=== PATIENT | female | born 1985 | race Caucasian/White ===

== ENCOUNTER 2017-01-07 05:16 | Inpatient (IN) ==
[2017-01-07] MEDS ORDERED: 0.9 % Sodium Chloride 1,000 ML IVC ONE ×2 (05:32→12:37)
[2017-01-07] MEDS ORDERED: Clindamycin 600 MG/50 ML 600 MG/50 ML IV.SOLN IVPB ONE (05:33)
[2017-01-07] MEDS ORDERED: *HR* Morphine 2 MG/ML SYRINGE IVP ONE (05:35)
--- NOTE | 2017-01-07 06:19 | Emergency Department Note ---
Disposition Clinical Impression: Abscess of skin or subcutaneous tissue Qualifiers: Site of cutaneous abscess: face Qualified Code(s): L02.01 - Cutaneous abscess of face Disposition: Still a Patient Condition: Fair Referrals: NONE,PCP [Primary Care Provider] - Forms: ED Satisfaction Letter Time of Disposition: 06:57 General Adult HPI - General Chief complaint: ED Skin/Abscess/Foreign Body Stated complaint: facial swelling Time Seen by Provider: 01/07/17 05:25 Source: patient Limitations: no limitations Nursing Notes Reviewed: Yes Vital Signs Reviewed: Yes - History of Present Illness HPI Narrative: Patient is a 31-year-old female with a past medical history of IV drug use who presents to the emergency department with a two-day history of left facial swelling after what she says was a spider bite. Patient states that it is really painful. She denies any shortness of breath Pain Scale: 10 - Related Data Previous Rx's Medication Instructions Recorded HydrOXYzine Pamoate [Vistaril] 25 mg PO 3-4XD PRN #20 capsule 12/04/14 OxyCODONE/APAP 5/325 [Percocet 1 each PO Q6HR PRN #12 tablet 03/17/15 5/325 MG] metroNIDAZOLE [Flagyl] 500 mg PO TID #30 tablet 03/17/15 Dicyclomine [Bentyl] 20 mg PO QID #40 capsule 03/22/15 Diphenoxylate/Atropine [Lomotil] 1 each PO QID #40 tablet 03/22/15 Ondansetron ODT [Zofran ODT] 4 mg SL Q8HR PRN #15 tab.rapdis 03/22/15 OxyCODONE/APAP 5/325 [Percocet 1 each PO Q6HR PRN #10 tablet 03/22/15 5/325] PredniSONE 60 mg PO DAILY #6 tablet 03/22/15 Naproxen [Naprosyn] 500 mg PO BID PRN #30 tablet 03/26/15 Ondansetron [Zofran] 4 mg IM Q8H #10 vial 05/06/15 Phenazopyridine HCl [Pyridium] 200 mg PO TIDAC #6 tab 05/11/16 Sulfamethoxazole/Trimeth DS 1 each PO BID #14 tablet 05/11/16 [Bactrim DS] Ciprofloxacin [Cipro] 500 mg PO BID #10 tablet 07/20/16 Phenazopyridine [Pyridium] 200 mg PO TID #6 tablet 07/20/16 Ibuprofen [Motrin] 600 mg PO Q6HR PRN #30 tab 09/04/16 Ondansetron ODT [Zofran ODT] 4 mg SL Q6HR #20 tab.rapdis 09/04/16 Sulfamethoxazole/Trimeth DS 1 each PO BID #14 tablet 09/04/16 [Bactrim DS] Sulfamethoxazole/Trimeth DS 2 each PO BID #28 tablet 10/29/16 [Bactrim DS] Allergies Allergy/AdvReac Type Severity Reaction Status Date / Time Amoxicillin Allergy Anaphylaxis Verified 01/07/17 05:21 iodine Allergy Itching Verified 01/07/17 05:21 ketorolac [From Toradol] Allergy Seizure Verified 01/07/17 05:21 Penicillins Allergy Anaphylaxis Verified 01/07/17 05:21 tramadol Allergy Seizure Verified 01/07/17 05:21 sea food Allergy See Uncoded 07/20/16 07:52 Comments All systems ED: reviewed and negative except as stated. Constitutional: Denies: fever ENT ED: Reports: other (Facial pain). 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 There appears to be an area that has some drainage.) - Eye Eye exam: Absent: scleral icterus, conjunctival injection - ENT ENT exam: mucous membranes moist, other (Patent airway tongue is normal size.) - Neck Neck exam: Present: trachea midline. Absent: tenderness, meningismus - Chest Chest inspection: Present: normal inspection, symmetric chest wall rise - Respiratory Respiratory exam: Present: normal lung sounds bilaterally. Absent: respiratory distress, accessory muscle use - Cardiovascular Cardiovascular exam: Present: regular rate, normal rhythm, normal heart sounds - Abdominal Exam Abdominal exam: Present: soft, Non-Tender - Neurological Exam Neurological exam: Present: alert, oriented X3 - Psychiatric Psychiatric exam: Present: normal affect, normal mood - Skin Skin exam: Present: erythema, other (Left face, and drainage, swelling, tenderness to palpation stopping at the upper neck.) Course Course Narrative: This is a 31-year-old female with a past medical history of IV drug abuse. She presents to the emergency department with what appears to be an abscess and cellulitis of the left cheek. She denies any constitutional symptoms of fevers or chills at this time. I will obtain a CT scan of this patient's face. I will also start her on clindamycin. I suspect this to be a staph infection. I will obtain a CBC, BMP, and blood cultures. - Reevaluation(s) Reevaluation #1: SBAR was provided to Dr. Pereyra as this patient is awaiting CT scan and we are having shift change. Time: 06:56 Vital Signs Temperature 99.5 F 01/07/17 05:17 Pulse Rate 98 01/07/17 05:17 Respiratory Rate 20 01/07/17 05:17 Blood Pressure 110/67 01/07/17 05:17 O2 Sat by Pulse Oximetry 98 01/07/17 05:17 Temperature 99.5 F 01/07/17 05:17 Pulse Rate 98 01/07/17 05:17 Respiratory Rate 20 01/07/17 05:17 Blood Pressure 110/67 01/07/17 05:17 O2 Sat by Pulse Oximetry 98 01/07/17 05:17 Oxygen Delivery Oxygen Delivery Room Air Medical Decision Making - Lab Data Result diagrams: 01/07/17 06:40 Lab Results 01/07/17 01/07/17 01/07/17 Range/Units 05:30 05:55 06:40 WBC 15.7 H (4.3-11.1) K/mcL RBC 3.99 (3.82-4.97) M/mcL Hgb 11.6 (11.5-15.4) g/dL Hct 35.3 (35.3-44.9) % MCV 88.5 (83.0-100.0) fL MCH 29.1 (28.0-33.3) pg MCHC 32.9 (31.6-35.5) g/dL RDW 12.9 (11.5-14.5) % Plt Count 334 (140-400) K/mcL MPV 9.5 (9.4-12.4) fL Immature Gran % 0.5 (0-4) % Seg Neutrophils % 76.2 % Lymphocytes % 15.8 % Monocytes % 6.4 % Eosinophils % 0.8 % Basophils % 0.3 % Neutrophils # 12.0 H (1.6-8.9) K/mcL Lymphocytes # 2.5 (0.6-4.6) K/mcL Monocytes # 1.0 (0.0-1.3) K/mcL Eosinophils # 0.1 (0.0-0.6) K/mcL Basophils # 0.1 (0.0-0.2) K/mcL Immature Plt Fraction 2.7 (1.1-6.1) % Urine Test Negative (Negative) Specimen Rejected Hemolyzed Attestation Statement - Attestation Attestation: I, Leonel Garvin MD, personally evaluated this patient and discussed their management with the resident physician. I reviewed the resident's note and agree with the documented findings, medical decision making, and plan of care. 31-year-old female presents to the emergency department with a complaint of swelling of the left cheek area which started 2 days prior to arrival. There has been some low-grade fever. No difficulty swallowing or breathing. Patient states that a spider bit her on the left cheek area a few days ago. She does have a history of IV drug abuse. On examination patient is a well-developed thin female in no acute distress. She is alert and oriented 3. There is no cyanosis or diaphoresis. Patient has marked swelling of the left jaw and cheek area. The area is firm and tender to palpation. Mild erythema. There is a superficial crusted wound over the left jaw area with no drainage. Neck is supple with no lymphadenopathy. Breath sounds are clear and equal bilaterally. Heart regular. Labs and CT ordered. At shift change patient is signed out to the oncoming dayshift physician, Dr. Gee.
[2017-01-07 06:47] LABS: Basophils # 0.1 K/mcL (0.0-0.2); Basophils % 0.3 %; Eosinophils # 0.1 K/mcL (0.0-0.6); Eosinophils % 0.8 %; Hematocrit 35.3 % (35.3-44.9); Hemoglobin 11.6 g/dL (11.5-15.4); Immature Granulocytes % 0.5 % (0-4); Immature Platelets 2.7 % (1.1-6.1); Lymphocytes # 2.5 K/mcL (0.6-4.6); Lymphocytes % 15.8 %; Mean Corpuscular HGB Conc 32.9 g/dL (31.6-35.5); Mean Corpuscular Hemoglobin 29.1 pg (28.0-33.3); Mean Corpuscular Volume 88.5 fL (83.0-100.0); Mean Platelet Volume 9.5 fL (9.4-12.4); Monocytes % 6.4 %; Platelet Count 334 K/mcL (140-400); Red Blood Count 3.99 M/mcL (3.82-4.97); Red Cell Distribution Width 12.9 % (11.5-14.5); Segmented Neutrophils % 76.2 %
[2017-01-07 07:00] LABS: BUN/Creatinine Ratio 11 (6-26); Blood Urea Nitrogen 7 mg/dL (7-20); Calcium 9.4 mg/dL (8.6-10.8); Carbon Dioxide 27 mEq/L (19-29); Chloride 96 mEq/L (98-109); Glucose 118 mg/dL (70-99); Osmolality,Calculated 273 (280-300); Potassium 3.8 mEq/L (3.5-4.5); Sodium 132 mEq/L (136-145); eGFR For African Americans > 60 (> 60); eGFR For Non-African Americans > 60 (> 60)
--- NOTE | 2017-01-07 07:44 | Emergency Department Note ---
START Narrative - START START: I did see the patient and spoke with her and examined her. A large amount of facial swelling. Labs and reviewed showing a leukocytosis and some minimal hyponatremia. The patient does have a CT pending. Antibiotics have been started. I did add on a lactate. Blood cultures have been ordered. The patient will be admitted to the hospital. There is no crepitus. I did not palpate inside the mouth and looked under the tongue and there is no evidence of Brian angina. There is no drooling or stridor or evidence of emergent airway impingement. [id number]
[2017-01-07] MEDS ORDERED: Vancomycin 750 MG in D5% in Water 250 ML IVPB ONE (09:10)
--- NOTE | 2017-01-07 09:16 | Emergency Department Note ---
Disposition Clinical Impression: Hyponatremia, Intravenous drug abuse Abscess of skin or subcutaneous tissue Qualifiers: Site of cutaneous abscess: face Qualified Code(s): L02.01 - Cutaneous abscess of face Disposition: Admitted As Inpatient Condition: Fair Referrals: NONE,PCP [Primary Care Provider] - Forms: ED Satisfaction Letter Time of Disposition: 09:16 General Adult HPI - General Chief complaint: ED Skin/Abscess/Foreign Body Stated complaint: facial swelling Time Seen by Provider: 01/07/17 05:25 Source: patient Limitations: no limitations Nursing Notes Reviewed: Yes Vital Signs Reviewed: Yes - History of Present Illness Pain Scale: 10 - Related Data Home Medications Medication Instructions Recorded Confirmed No Known Home Drugs 01/07/17 01/07/17 Allergies Allergy/AdvReac Type Severity Reaction Status Date / Time Amoxicillin Allergy Anaphylaxis Verified 01/07/17 05:21 iodine Allergy Itching Verified 01/07/17 05:21 ketorolac [From Toradol] Allergy Seizure Verified 01/07/17 05:21 Penicillins Allergy Anaphylaxis Verified 01/07/17 05:21 tramadol Allergy Seizure Verified 01/07/17 05:21 sea food Allergy See Uncoded 07/20/16 07:52 Comments Constitutional: Denies: fever ENT ED: Reports: other (Facial pain). 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 - Social History Smoking Status: Current every day smoker Smokeless Tobacco Status: No Alcohol use: Reports: none Drug use: Reports: cocaine, opiates, marijuana, IV Drug Use, other Physical Exam - General Limitations: no limitations General appearance: alert, in no apparent distress Course Vital Signs Temperature 99.5 F 01/07/17 05:17 Pulse Rate 98 01/07/17 05:17 Respiratory Rate 20 01/07/17 05:17 Blood Pressure 110/67 01/07/17 05:17 O2 Sat by Pulse Oximetry 98 01/07/17 05:17 Temperature 99.5 F 01/07/17 05:17 Pulse Rate 98 01/07/17 05:17 Respiratory Rate 20 01/07/17 05:17 Blood Pressure 110/67 01/07/17 05:17 O2 Sat by Pulse Oximetry 98 01/07/17 05:17 Oxygen Delivery Oxygen Delivery Room Air Medical Decision Making - MDM Narrative Medical decision making narrative: I did see the patient and spoke with her and examined her. A large amount of facial swelling. Labs and reviewed showing a leukocytosis and some minimal hyponatremia. The patient does have a CT pending. Antibiotics have been started. I did add on a lactate. Blood cultures have been ordered. The patient will be admitted to the hospital. There is no crepitus. I did not palpate inside the mouth and looked under the tongue and there is no evidence of Brian angina. There is no drooling or stridor or evidence of emergent airway impingement. 0743 I did discuss with the hospitalist who accepts the patient for admission. I did add on vancomycin. The patient is currently sleeping.[id number] I did review the patient's EKG which shows normal sinus rhythm with a rate of 90 without acute ischemic changes. The intervals are normal. No prolongation of the QT segment. 1103 - Medical Records Medical records reviewed: Yes I reviewed the patient's medical records. - Lab Data Lab results reviewed: Yes I reviewed the patient's lab results. Result diagrams: 01/07/17 06:40 01/07/17 06:40 Lab Results 01/07/17 01/07/17 01/07/17 Range/Units 05:30 05:55 06:40 WBC 15.7 H (4.3-11.1) K/mcL RBC 3.99 (3.82-4.97) M/mcL Hgb 11.6 (11.5-15.4) g/dL Hct 35.3 (35.3-44.9) % MCV 88.5 (83.0-100.0) fL MCH 29.1 (28.0-33.3) pg MCHC 32.9 (31.6-35.5) g/dL RDW 12.9 (11.5-14.5) % Plt Count 334 (140-400) K/mcL MPV 9.5 (9.4-12.4) fL Immature Gran % 0.5 (0-4) % Seg Neutrophils % 76.2 % Lymphocytes % 15.8 % Monocytes % 6.4 % Eosinophils % 0.8 % Basophils % 0.3 % Neutrophils # 12.0 H (1.6-8.9) K/mcL Lymphocytes # 2.5 (0.6-4.6) K/mcL Monocytes # 1.0 (0.0-1.3) K/mcL Eosinophils # 0.1 (0.0-0.6) K/mcL Basophils # 0.1 (0.0-0.2) K/mcL Immature Plt Fraction 2.7 (1.1-6.1) % Sodium (136-145) mEq/L Potassium (3.5-4.5) mEq/L Chloride (98-109) mEq/L Carbon Dioxide (19-29) mEq/L BUN (7-20) mg/dL Creatinine (0.57-1.11) mg/dL Est GFR ( Amer) (> 60) Est GFR (Non-Af Amer) (> 60) BUN/Creatinine Ratio (6-26) Glucose (70-99) mg/dL Calculated Osmolality (280-300) Lactic Acid (0.5-2.2) mmol/L Calcium (8.6-10.8) mg/dL Urine Test Negative (Negative) Specimen Rejected Hemolyzed 01/07/17 01/07/17 Range/Units 06:40 08:15 WBC (4.3-11.1) K/mcL RBC (3.82-4.97) M/mcL Hgb (11.5-15.4) g/dL Hct (35.3-44.9) % MCV (83.0-100.0) fL MCH (28.0-33.3) pg MCHC (31.6-35.5) g/dL RDW (11.5-14.5) % Plt Count (140-400) K/mcL MPV (9.4-12.4) fL Immature Gran % (0-4) % Seg Neutrophils % % Lymphocytes % % Monocytes % % Eosinophils % % Basophils % % Neutrophils # (1.6-8.9) K/mcL Lymphocytes # (0.6-4.6) K/mcL Monocytes # (0.0-1.3) K/mcL Eosinophils # (0.0-0.6) K/mcL Basophils # (0.0-0.2) K/mcL Immature Plt Fraction (1.1-6.1) % Sodium 132 L (136-145) mEq/L Potassium 3.8 (3.5-4.5) mEq/L Chloride 96 L (98-109) mEq/L Carbon Dioxide 27 (19-29) mEq/L BUN 7 (7-20) mg/dL Creatinine 0.64 (0.57-1.11) mg/dL Est GFR ( Amer) > 60 (> 60) Est GFR (Non-Af Amer) > 60 (> 60) BUN/Creatinine Ratio 11 (6-26) Glucose 118 H (70-99) mg/dL Calculated Osmolality 273 L (280-300) Lactic Acid 0.6 (0.5-2.2) mmol/L Calcium 9.4 (8.6-10.8) mg/dL Urine Test (Negative) Specimen Rejected - Radiology Data Radiology results reviewed: Yes I reviewed the patient's radiology results. Critical Care Time Critical Care Time: No
[2017-01-07] MEDS: *HR* Morphine 2 MG/ML SYRINGE IVP ONE ×2 (11:00→12:03)
[2017-01-07] MEDS ORDERED: *HR* Morphine 10 MG/ML VIAL IVP ONE (11:00)
[2017-01-07] MEDS ORDERED: *HR* Morphine 2 MG/ML SYRINGE SQ ONE (11:17)
[2017-01-07 11:34] LABS: Amphetamine Screen,Urine Positive ng/mL (Cutoff=1000); Barbiturate Screen,Urine Negative ng/mL (Cutoff=200); Benzodiazepines Screen,Urine Negative ng/mL (Cutoff=200); Cannabinoid Screen,Urine Negative ng/mL (Cutoff = 50); Cocaine Screen,Urine Positive ng/mL (Cutoff= 300); Opiate Screen,Urine Positive ng/mL (Cutoff=300); Phencyclidine Screen,Urine Negative ng/mL (Cutoff=25)
[2017-01-07] MEDS ORDERED: *HR* Morphine 10 MG/ML VIAL IM ONE (11:45)
[2017-01-07] MEDS ORDERED: Ondansetron 4 MG/2 ML VIAL IVP PRN (12:38)
[2017-01-07] MEDS ORDERED: Naloxone 0.4 MG/ML INJ IVP PRN (12:38)
[2017-01-07] MEDS ORDERED: Acetaminophen 325 MG TABLET PO PRN (12:38)
[2017-01-07] MEDS ORDERED: Vancomycin 750 MG in D5% in Water 250 ML IVPB SCH (13:00)
[2017-01-07] MEDS ORDERED: D5% in Water 1,000 ML IVC PRN (13:11)
[2017-01-07] MEDS ORDERED: Dextrose Gel 15 GM PO PRN ×2 (13:11)
[2017-01-07] MEDS ORDERED: *HR* Dextrose 50 % in Water (Syg) 50 ML SYRINGE IVP PRN (13:11)
[2017-01-07] MEDS: Pantoprazole 40 MG VIAL IVP SCH (14:08)
[2017-01-07] MEDS: 0.9 % Sodium Chloride 1,000 ML IVC SCH ×2 (14:08→22:14)
[2017-01-07 14:13] LABS: eGFR For African Americans > 60 (> 60); eGFR For Non-African Americans > 60 (> 60)
--- NOTE | 2017-01-07 15:07 | Internal Med History&Physical ---
Date of Encounter: 01/07/17 Time of Encounter: 10:30 Assessment and Plan (1) Sepsis affecting skin Current visit: Yes Status: Acute Patient presents with criteria for sepsis on admission. Patient has WBC of 15.7 , heart rate of 98 bpm, and respiratory rate of 20-21. Patient is afebrile at this time with temperature of 99.5F. Patient received IV 0.9 NS bolus of 1,000 mL in ED at 3,750 mL/HR which was followed by second bolus. Following second bolus, patient to be 125 mL/HR. IV clindamycin and vancomycin administered in the ED. IV vancomycin with pharmacy dosing and IV clindamycin 900 mg Q8 to be continued. Bilirubin and creatinine ordered stat. Timed lactic acids ordered. Blood cultures x2 and wound culture ordered stat. Wound care consult and daily wound care ordered. ENT consult ordered. Follow-up labs ordered. Patient to be monitored closely for signs of increasing infection, cardiac and/or respiratory distress. Patient originally on 3A and moved to for monitoring. (2) Positive urine drug screen Current visit: Yes Status: Acute Patient presents with known history of drug abuse and IV drug use. Patient reports she used cocaine yesterday prior to coming to the ED for current cellulitis. Patient's urine tox screen positive for opiates, amphetamines, and cocaine. SW consult ordered to assess for post-discharge rehabilitation needs. (3) Hyperglycemia Current visit: Yes Status: Acute Patient presents with acute hyperglycemia and glucose level of 118 on admission. Blood glucose monitoring before meals and at bedtime. A1c ordered. Will administer low-dose correction insulin sliding scale hypoglycemic protocol. (4) Hyponatremia Current visit: Yes Status: Acute Patient presents with acute hyponatremia and sodium level of 132. Patient to receive 1 bolus of 1,000 mL IV fluids in the ED 0.9 NS, followed by second bolus of 1,000 mL, then 125 mL/HR 0.9 NS. Will monitor patient sodium level in follow-up labs. (5) DVT prophylaxis Current visit: Yes Status: Acute Patient to be placed on DVT prophylaxis due to current admission protocol and bed rest status. Bilateral SCDs placed on patient's LEs due to current symptoms regarding cellulitis and possible need for surgical intervention. Internal Medicine - H&P: HPI Chief complaint: Facial abscess of the left cheek Admitted From: Emergency Dept Plans for Post Hospital Care: Home History of present illness: Ms. Woodall is a 31 year old female with medical history of kidney stones presents from the ED with chief complaint of severe facial swelling to the left cheek due to what she reports as a spider bite from 2 days ago. Patient is a known drug addict with IV drug use. Patient's urine tox screen in the ED positive for opiates, amphetamines, cocaine. Patient reports she used cocaine yesterday. Patient reports extreme pain to the left cheek but denies any difficulty swallowing or shortness of breath. Patient also denies recent illness, nausea, vomiting, chills, chest pain, abdominal pain, lightheadedness, dizziness, unusual bleeding, presyncope, or syncope. CT of the face today with contrast shows marked soft tissue swelling of the left face and no focal fluid collection. On admission, patient's vital signs include temperature of 99.5F, heart rate of 98 bpm, respiratory rate of 20, BP 110/67, and SPO2 98% on room air. Patient's abnormal labs include WBC of 15.7, sodium of 132, chloride of 96 , and glucose of 118. Patient is a poor historian and appears altered on examination and provides very little information. Patiently currently meets sepsis criteria based on her 8, respiratory rate, and WBC. Patient is currently hemodynamically stable and in acute distress due to pain. Information taken from patient when able as well as previous medical records and imaging. Ms. Woodall is at high risk for further morbidity to current sepsis criteria, current symptoms, recent drug abuse, and risk factors and will be placed as inpatient status. Time spent with patient >40 minutes. Past Med Surg Social Fam HX - Past Medical History Source: patient, old records reviewed Medical history: kidney stones Psychiatric history: anxiety, depression, prior suicide attempt - Past Surgical History Surgical History: cholecystectomy - Social History Smoking Status: Current every day smoker Packs per day: 1 PPD Smokeless Tobacco Status: No Alcohol use: none Drug use: cocaine (Reports using cocaine yesterday prior to coming to ED), opiates, marijuana, IV Drug Use, other Current living situation: Home Activity Level: Independent ambulation Recent Out of Country Travel Within the Last 8 Weeks: No Exposure or Possible Exposure to Illness During Travel: No - Family History Father Race: Family Member Ethnicity: Non- Living Status: Still Living Hx Family Medical Disorders: No Mother Race: Family Member Ethnicity: Non- Living Status: Age at : 44 Cause of : CA Hx Family Cardiac Disorders: Yes (CA, HD) Hx Family Endocrine Disorder: Yes (DM) Brother Race: Family Member Ethnicity: Non- Living Status: Still Living Hx Family Cardiac Disorders: Yes (HD) Internal Medicine - H&P: Meds No Known Home Drugs 01/07/17 [History] 3 Allergy/AdvReac Type Severity Reaction Status Date / Time Amoxicillin Allergy Anaphylaxis Verified 01/07/17 05:21 iodine Allergy Itching Verified 01/07/17 05:21 ketorolac [From Toradol] Allergy Seizure Verified 01/07/17 05:21 Penicillins Allergy Anaphylaxis Verified 01/07/17 05:21 tramadol Allergy Seizure Verified 01/07/17 05:21 sea food Allergy See Uncoded 07/20/16 07:52 Comments All Systems PM: A 10-system review of systems was performed and is negative for pertinent findings except as documented above in the HPI. - EENT Eyes: no change in vision, no discharge, no pain, no photophobia Ears: no ear discharge, no ear pain, no tinnitus Nose, mouth and throat: no dysphagia, no nasal discharge, no neck pain, no sore throat - Cardiovascular Cardiovascular ROS IM: no chest pain, no diaphoresis, no dyspnea, no lightheadedness, no palpitations, no syncope - Respiratory Respiratory: no cough, no dyspnea, no wheezing, no excessive phlegm production - Gastrointestinal Gastrointestinal: no abdominal pain, no diarrhea, no hematemesis, no hematochezia, no melena, no nausea, no vomiting - Genitourinary Genitourinary: no change in urinary stream, no dysuria, no flank pain, no hematuria Menstruation: as per HPI - Musculoskeletal Musculoskeletal ROS IM: no numbness, no tingling - Integumentary Integumentary IM: as per HPI, erythema, sores (Left cheek d/t cellulitis and spider bite) - Neurological Neurological ROS: as per HPI - Psychiatric Psychiatric: as per HPI, anxiety (D/t pain) - Endocrine Endocrine IM: as per HPI - Hematologic/Lymphatic Hematologic/Lymphatic: no easy bruising - Allergic/Immunologic Allergic/Immunologic: as per HPI - Constitutional Vitals: Temp Pulse Resp BP Pulse Ox 98 F 92 16 118/74 98 01/07/17 12:43 01/07/17 14:40 01/07/17 14:40 01/07/17 14:40 01/07/17 14:40 General appearance: Present: A&O X 2, severe distress, answers questions appropriately (Requires several attempts) - Head Additional comments: Left cheek is edematous and erythematous with swelling the size of a grapefruit. There is a center core area that is weeping with serosanguineous fluid. - Eye Additional comments: Right eye is able to open. Left eye is swollen shut. - ENT ENT exam: Present: mucous membranes dry - Neck Neck exam general surgery: Present: tenderness (Left side of neck is edematous.) - Respiratory Respiratory exam: Present: CTAB. Absent: accessory muscle use, rales, rhonchi, wheezes - Cardiovascular Cardiovascular exam: Present: RRR, +S1, +S2. Absent: diastolic murmur, gallop, rubs, systolic murmur - GI/Abdominal GI/Abdominal exam: Present: normal bowel sounds, soft, no peritoneal signs. Absent: distended, tenderness - Rectal Rectal exam: Present: deferred - Additional comments: exam deferred. - Extremities Exam Extremities exam: Present: warm, radial pulses palpable and symmetrical. Absent : calf tenderness, cyanotic, pedal edema - Back Exam Back exam: Present: normal inspection - Neurological Exam Neurological exam: Present: altered - Psychiatric Psychiatric exam: Present: anxious - Skin Skin exam: Present: dry, intact Internal Med - H&P Results - Labs CBC & Chem 7: 01/07/17 06:40 01/07/17 13:50 Labs: BMP 01/07/17 13:50 Creatinine 0.60 Cardiac Enzymes 01/07/17 Range/Units 13:50 Troponin I 0.00 (0-0.03) ng/mL Liver Function 01/07/17 Range/Units 13:50 Total Bilirubin 0.6 (0.2-1.2) mg/dL - EKG Data EKG shows normal: sinus rhythm - EKG Data Prior EKG available for review: yes EKG comments: 01/07/17 15:32 EKG dated 09/03/16 shows sinus tachycardia and right atrial enlargement, moderate ST depression. EKG dated 01/07/17 shows sinus rhythm with sinus arrhythmia and incomplete right bundle branch block. - Diagnostic Studies Other Images Additional comments: Impressions Face CT 01/07/17 05:29 IMPRESSION: Marked soft tissue swelling of the left face. No focal fluid collection. D/ / 01/07/2017 08:40:28 Chaz Avila MD / [employer]old Interpreting Provider: Chaz Avila MD
[2017-01-07 15:20] LABS: Hepatitis A Antibody IgM Nonreactive (Nonreactive); Hepatitis B Surface Antigen Nonreactive (Nonreactive)
[2017-01-07 15:53] LABS: Hepatitis B Core IgM Grayzone (Nonreactive); Hepatitis C Virus Antibody Reactive (Nonreactive)
[2017-01-07] MEDS ORDERED: Clindamycin 600 MG/50 ML 600 MG/50 ML IV.SOLN IVPB SCH (16:00)
[2017-01-07] MEDS: Clindamycin 900 MG/50 ML 900 MG/50 ML IV.SOLN IVPB SCH (17:01)
[2017-01-07] MEDS: *HR* HYDROmorphone (PF) 1 MG/ML SYRINGE IVP PRN ×2 (19:35→22:19)
--- NOTE | 2017-01-07 19:38 | ENT - Consult Note ---
Date of Encounter: 01/07/17 Time of Encounter: 19:20 Assessment and Plan (1) Facial abscess Current Visit: Yes Status: Acute White female with findings consistent with facial abscess patient on appropriate antibiotics including vancomycin and clindamycin recommending heat and incision and drainage in the morning no airway difficulty currently and no special that this will develop overnight History of Present Illness History of present illness: White female admitted today with significant facial cellulitis patient gives history of spider bite but she also has history of drug use a CT scan done earlier today did not reveal any obvious abscess that there is a suggestion of loculation patient has no problems with swelling going down onto the neck it is difficult to visualize do an exam of the oral cavity but she is having no problems with breathing and is handling her secretions well Past Med Surg Social Fam HX - Past Medical History Medical history: kidney stones Psychiatric history: anxiety, depression, prior suicide attempt - Past Surgical History Surgical History: cholecystectomy - Social History Smoking Status: Current every day smoker Packs per day: 1 PPD Smokeless Tobacco Status: No Alcohol use: none Drug use: cocaine (Reports using cocaine yesterday prior to coming to ED), opiates, marijuana, IV Drug Use, other - Family History Father Race: Family Member Ethnicity: Non- Living Status: Still Living Hx Family Medical Disorders: No Mother Race: Family Member Ethnicity: Non- Living Status: Age at : 44 Cause of : CO Hx Family Cardiac Disorders: Yes (CO, HD) Hx Family Endocrine Disorder: Yes (DM) Brother Race: Family Member Ethnicity: Non- Living Status: Still Living Hx Family Cardiac Disorders: Yes (HD) Medications and Allergies No Known Home Drugs 01/07/17 [History] 3 Allergy/AdvReac Type Severity Reaction Status Date / Time Amoxicillin Allergy Anaphylaxis Verified 01/07/17 05:21 iodine Allergy Itching Verified 01/07/17 05:21 ketorolac [From Toradol] Allergy Seizure Verified 01/07/17 05:21 Penicillins Allergy Anaphylaxis Verified 01/07/17 05:21 tramadol Allergy Seizure Verified 01/07/17 05:21 sea food Allergy See Uncoded 07/20/16 07:52 Comments ENT Exam Initial Vital Signs Temp Pulse Resp BP Pulse Ox 99.5 F 98 20 110/67 98 01/07/17 05:17 01/07/17 05:17 01/07/17 05:17 01/07/17 05:01/07/17 05:17 - General physical appearance well developed, well nourished, moderate distress, severe pain - Eyes PERRL (Significant swelling noted of the left periorbita consistent with fascial abscess cellulitis) - ENT normal pinna, normal nares, normal mucosa, no hearing loss, no congestion, Other (Gross swelling of the left cheek with a small area of skin breakdown able to exude pus from this. The face is tense on the left side) - Neck no masses, trachea midline, no lymphadectomy - Respiratory normal respiratory effort, clear to auscultation Exam Initial Vital Signs Temp Pulse Resp BP Pulse Ox 99.5 F 98 20 110/67 98 01/07/17 05:01/07/17 05:01/07/17 05:17 01/07/17 05:01/07/17 05:17 Results - Labs 01/07/17 06:40 01/07/17 13:50 Abnormal lab results WBC 15.7 K/mcL (4.3-11.1) H 01/07/17 06:40 Neutrophils # 12.0 K/mcL (1.6-8.9) H 01/07/17 06:40 Sodium 132 mEq/L (136-145) L 01/07/17 06:40 Chloride 96 mEq/L (98-109) L 01/07/17 06:40 Glucose 118 mg/dL (70-99) H 01/07/17 06:40 POC Glucose 101 (58-89) H 01/07/17 18:01 Calculated Osmolality 273 (280-300) L 01/07/17 06:40 Urine Opiates Screen Positive ng/mL (Crubsd=395) H 01/07/17 05:30 Ur Amphetamines Screen Positive ng/mL (Vfhafm=9174) H 01/07/17 05:30 Urine Cocaine Screen Positive ng/mL (Cutoff= 300) H 01/07/17 05:30 Hep B Core IgM Ab [place] (Nonreactive) H 01/07/17 13:50 Hepatitis C Ab Screen Reactive (Nonreactive) H 01/07/17 13:50 Diabetes panel 01/07/17 Range/Units 13:50 Creatinine 0.60 (0.57-1.11) mg/dL Pituitary panel 01/07/17 Range/Units 13:50 Creatinine 0.60 (0.57-1.11) mg/dL Adrenal panel 01/07/17 01/07/17 Range/Units 13:50 13:50 Creatinine 0.60 (0.57-1.11) mg/dL Total Bilirubin 0.6 (0.2-1.2) mg/dL All other labs normal. Consult Discharge Plan - Plan Referrals: [facility] [Other] (They are only open on Tuesday' from 5p 7-p)
[2017-01-07] MEDS: Insulin LISPRO 300 UNITS/3 ML VIAL SQ SCH ×2 (20:39→21:23)
[2017-01-07] MEDS: Vancomycin 750 MG in D5% in Water 250 ML IVPB SCH (22:10)
[2017-01-08] MEDS: Clindamycin 900 MG/50 ML 900 MG/50 ML IV.SOLN IVPB SCH ×3 (00:35→17:12)
[2017-01-08] MEDS: *HR* HYDROmorphone (PF) 1 MG/ML SYRINGE IVP PRN ×6 (01:37→20:10)
[2017-01-08 07:02] LABS: Basophils % 0.3 %; Eosinophils # 0.2 K/mcL (0.0-0.6); Eosinophils % 1.3 %; Hematocrit 36.3 % (35.3-44.9); Hemoglobin 12.2 g/dL (11.5-15.4); Immature Granulocytes % 0.4 % (0-4); Immature Platelets 2.3 % (1.1-6.1); Lymphocytes % 14.6 %; Mean Corpuscular HGB Conc 33.6 g/dL (31.6-35.5); Mean Corpuscular Hemoglobin 29.4 pg (28.0-33.3); Mean Corpuscular Volume 87.5 fL (83.0-100.0); Mean Platelet Volume 9.3 fL (9.4-12.4); Monocytes # 0.6 K/mcL (0.0-1.3); Monocytes % 4.4 %; Neutrophils # 10.7 K/mcL (1.6-8.9); Platelet Count 360 K/mcL (140-400); Red Blood Count 4.15 M/mcL (3.82-4.97); Red Cell Distribution Width 12.3 % (11.5-14.5)
[2017-01-08 07:07] LABS: INR 1.2; Prothrombin Time 12.6 Seconds (9.4-12.1)
[2017-01-08 07:09] LABS: Activated Partial Thrombo Time 29.8 Seconds (26.0-36.0)
[2017-01-08 07:30] LABS: Alanine Aminotransferase 31 Units/L (0-55); Alkaline Phosphatase 92 Units/L (38-126); Aspartate Amino Transferase 24 Units/L (5-34); BUN/Creatinine Ratio 7 (6-26); Bilirubin,Total 0.5 mg/dL (0.2-1.2); Calcium 9.1 mg/dL (8.6-10.8); Carbon Dioxide 26 mEq/L (19-29); Chloride 99 mEq/L (98-109); Glucose 85 mg/dL (70-99); Magnesium 1.3 mg/dL (1.6-2.6); Osmolality,Calculated 272 (280-300); Potassium 3.9 mEq/L (3.5-4.5); Sodium 133 mEq/L (136-145); eGFR For African Americans > 60 (> 60); eGFR For Non-African Americans > 60 (> 60)
[2017-01-08 07:31] LABS: Albumin 3.2 g/dL (3.5-5.0); Albumin/Globulin Ratio 0.8 (1.1-2.2); Chol/HDL Ratio 2.6 (0-4.9); Cholesterol 154 mg/dL (< 200); Globulin 3.8 g/dL (2.4-3.5); HDL Cholesterol 59 mg/dL (40-59); LDL Cholesterol,Calculated 79 mg/dL (0-99); Triglycerides 79 mg/dL (< 150)
[2017-01-08 07:32] LABS: Blood Urea Nitrogen 4 mg/dL (7-20)
[2017-01-08] MEDS: 0.9 % Sodium Chloride 1,000 ML IVC SCH ×2 (08:13→14:32)
[2017-01-08] MEDS: Insulin LISPRO 300 UNITS/3 ML VIAL SQ SCH ×4 (08:31→20:38)
--- NOTE | 2017-01-08 09:58 | Electrocardiograph Report ---
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
[2017-01-08 10:12] LABS: Hemoglobin A1C 5.2 %
[2017-01-08] MEDS: Pantoprazole 40 MG VIAL IVP SCH (10:31)
[2017-01-08] MEDS: Vancomycin 750 MG in D5% in Water 250 ML IVPB SCH ×2 (10:31→20:10)
[2017-01-08] MEDS ORDERED: Ipratropium/Albuterol Neb 3 ML IH ONE (11:47)
[2017-01-08] MEDS ORDERED: Ipratropium/Albuterol Neb 3 ML ONE (11:48)
--- NOTE | 2017-01-08 12:06 | Anesthesia Evaluation PreOp ---
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 Denies IVDA despite puncture/ track mcgowan), other Medications and Allergies No Known Home Drugs 01/07/17 [History] 3 Allergy/AdvReac Type Severity Reaction Status Date / Time Amoxicillin Allergy Anaphylaxis Verified 01/07/17 05:21 iodine Allergy Itching Verified 01/07/17 05:21 ketorolac [From Toradol] Allergy Seizure Verified 01/07/17 05:21 Penicillins Allergy Anaphylaxis Verified 01/07/17 05:21 tramadol Allergy Seizure Verified 01/07/17 05:21 sea food Allergy See Uncoded 07/20/16 07:52 Comments - Meds/Allergy Pre-op Review Medications Reviewed: Yes Allergies Reviewed: Yes Beta Blockers on Current Med List: No Anesthesia Results - Labs 01/08/17 06:50 01/08/17 06:50 - Imaging EKG: image reviewed Anesthesia Exam Vital Signs Temp Pulse Resp BP Pulse Ox 01/08/17 11:51 98.2 F 93 16 112/77 100 01/08/17 11:20 90 98 01/08/17 07:46 97.7 F 95 16 113/55 97 01/08/17 03:58 97.8 F 92 16 108/59 97 01/07/17 23:20 98.8 F 94 16 114/80 99 01/07/17 19:51 99.4 F 89 107/71 97 01/07/17 17:00 93 99 01/07/17 16:21 86 98 01/07/17 15:27 98.7 F 89 20 112/74 98 01/07/17 14:40 92 16 118/74 98 01/07/17 12:43 98 F 72 16 100/62 96 Intake and Output 0901/08/17 01/08/17 23:59 07:59 15:59 Intake Total 1300 / 1300 850 / 850 0 / 0 Output Total 1000 / 1000 2400 / 2400 350 / 350 Balance 300 / 300 -1550 / -1550 -350 / -350 Intake: IV Fluids 1300 / 1300 850 / 850 0.9 % Sodium Chloride 1, 1000 / 1000 800 / 800 000 ML @ 125 mls/hr IVC . Q8H [facility] Rx#:[id number] Cleocin Premix 900 MG/50 50 / 50 50 / 50 ML 900 mg In 50 ml @ 50 mls/hr IVPB Q8HR [facility] Rx#: [id number] Vancocin 750 MG In 250 / 250 Dextrose 5% 250 ML @ 250 mls/hr IVPB Q12H [facility] Rx#: [id number] Oral 0 / 0 0 / 0 0 / 0 Output: Urine 1000 / 1000 2400 / 2400 350 / 350 Other: Weight 53.6 kg Blood Glucose* 101 77 Weight: 117# 54kG [BMI = 23] NPO (# of Hours): MNoc - HEENT Pupil (Motor): Pupils equal, EOMI Mallampati: IV (Pt unable to fully open mouth) Oral Opening: Less than or equal to 3 - REMOTE SENSING TECHNOLOGIST LOC: Oriented REMOTE SENSING TECHNOLOGIST Motor: Normal RUE, Normal LUE, Normal RLE, Normal LLE, Deficit Face (FAcial Swelling eye to chin) REMOTE SENSING TECHNOLOGIST Sensory: Normal: RUE, LUE, RLE, LLE, Deficit: Face - Cardiac Rhythm: Regular Murmur: None - Pulmonary Breath Sounds: bilateral Clear Respiratory Effort: Symmetrical Anesthesia Assess/Plan ASA Score: 3 (Hep C+, MRSA, Polysubstance abuse) Modified Dorset Scale for Level of Consciousness: Cooperative, oriented, and tranquil Anesthetic Plan: General Monitoring Plan: Standard Monitors Recovery Plan: PACU Anes Supervising Prov Stmt: Pt seen/evaluated, R&B Discussed, questions answered and consent obtained. Dorothy Hayes MD
--- NOTE | 2017-01-08 12:22 | Internal Med Progress Note ---
Date of Encounter: 01/08/17 Time of Encounter: 09:00 - Assessment and plan (1) Sepsis affecting skin Current Visit: Yes Status: Acute Assessment and plan: Patient to meet criteria for sepsis. We will continue antibiotics, IV fluid. Negative lactate. Will follow blood culture. - ENT doctor on case, plan for I/D. - Closely monitor patient for possible airway obstruction. Place patient on continuous cardiac and pulse oximeter monitoring. Keep nothing by mouth at this point. Patient is at high risk because she is on vancomycin, need close monitoring (2) DVT prophylaxis Current Visit: Yes Status: Acute Assessment and plan: SCDs (3) Positive urine drug screen Current Visit: Yes Status: Acute Assessment and plan: Social work consult for possible detox referral. - Time Spent With Patient Greater than 35 minutes - Subjective Interval history: Patient is a 31-year-old female admitted for left cheek cellulitis. Past medical history is significant for history of IV drug use. Patient was seen and examined. Still has left cheek swelling and redness. Reportedly improved after antibiotic use. No fever. Vitals generally stable. ENT on case and the plan for I/D. continue vancomycin and clindamycin. - Constitutional Vitals: Temp Pulse Resp BP Pulse Ox 98.2 F 93 16 112/77 100 01/08/17 11:51 01/08/17 11:51 01/08/17 11:51 01/08/17 11:51 01/08/17 11:51 General appearance: Present: mild distress, A&O X 3, answers questions appropriately (Requires several attempts) - Head Head exam: Present: atraumatic, normocephalic - Eye Eye exam: Present: PERRL, conjuntiva pink, sclera anicteric Pupils: Present: PERRL - ENT Additional comments: Left cheek swelling, redness related to left eye and lips. - Neck Neck exam general surgery: Present: supple, trachea midline. Absent: lymphadenopathy - Respiratory Respiratory exam: Present: CTAB. Absent: accessory muscle use, rales, rhonchi, wheezes - Cardiovascular Cardiovascular exam: Present: RRR, +S1, +S2. Absent: diastolic murmur, gallop, rubs, systolic murmur - GI/Abdominal GI/Abdominal exam: Present: normal bowel sounds, soft, no peritoneal signs. Absent: distended, tenderness - Extremities Exam Extremities exam: Present: warm, radial pulses palpable and symmetrical. Absent : calf tenderness, cyanotic, pedal edema - Neurological Exam Neurological exam: Present: CN II-XII intact, oriented X3, no focal deficits. Absent: pronater drift, facial droop, speech deficit - Skin Skin exam: Present: dry, intact Internal Medicine: Result - Labs CBC & Chem 7: 01/08/17 06:50 01/08/17 06:50 Labs: Short CBC 01/08/17 Range/Units 06:50 WBC 13.6 H (4.3-11.1) K/mcL Hgb 12.2 (11.5-15.4) g/dL Hct 36.3 (35.3-44.9) % Plt Count 360 (140-400) K/mcL Neutrophils # 10.7 H (1.6-8.9) K/mcL BMP 01/07/17 01/08/17 13:50 06:50 Sodium 133 L Potassium 3.9 Chloride 99 Carbon Dioxide 26 BUN 4 L Creatinine 0.60 0.60 Glucose 85 Calcium 9.1 Cardiac Enzymes 01/07/17 Range/Units 13:50 Troponin I 0.00 (0-0.03) ng/mL Liver Function 01/07/17 01/08/17 Range/Units 13:50 06:50 Total Bilirubin 0.6 0.5 (0.2-1.2) mg/dL AST 24 (5-34) Units/L ALT 31 (0-55) Units/L Alkaline Phosphatase 92 (38-126) Units/L Albumin 3.2 L (3.5-5.0) g/dL - ABG Interpretation ABG results: PT/INR, D-dimer PT 12.6 Seconds (9.4-12.1) H 01/08/17 06:50 Consult Discharge Plan - Plan Referrals: [facility], [facility] [Other] (They are only open on Tuesday's from 5p 7-p)
[2017-01-08] MEDS ORDERED: Lidocaine -MPF 2% 2 ML VIAL ONE (12:29)
[2017-01-08] MEDS ORDERED: *HR* Midazolam HCl 2 MG/2 ML VIAL ONE (12:29)
[2017-01-08] MEDS ORDERED: *HR* FentaNYL (PF) 100 MCG/2 ML VIAL ONE (12:29)
[2017-01-08] MEDS ORDERED: Propofol 500 MG/50 ML INFUS..BTL ONE (12:29)
--- NOTE | 2017-01-08 13:11 | Operative Note ---
Date of procedure: 01/08/17 Pre-op diagnosis: abcess Post-op diagnosis: same Procedure: left facial prep followed by stab incision in direction of facial nerve over left jaw 5 or more ccs of pus was drained with massage iodoform gauze sutured in face consder removal in 36 hrs Complications: none Anesthesia: IV sedation Surgeon: Pepe Shah Condition: stable Disposition: floor Procedure in Detail: as above
--- NOTE | 2017-01-08 13:26 | Anesthesia Evaluation Post Op ---
Date of Encounter: 01/08/17 Time of Encounter: 13:24 - Vital Signs Vital Signs: Vital Signs/O2 Sat/Glucose, Most Current Temp Pulse Resp BP Pulse Ox 01/08/17 13:19 80 16 113/76 99 01/08/17 13:09 97.7 F 90 18 107/72 99 01/08/17 11:51 98.2 F 93 16 112/77 100 01/08/17 11:20 90 98 - Lungs Lungs: Clear Ascult./Percussion - Airway Airway: Non-obstructed - Cardiovascular Regular Rate - Mental Status Mental Status: Asleep without brisk response to light stimulation - Pain Pain Scale used: Moreira-Lorenzo (Faces) (2) - Nausea Vomiting Nausea Vomiting: Not Present - Hydration Hydration: Ice chips (declines ice chips. wants SodaPop in PACU), Has not voided - Discharge PostOp Status: Transfer Patient to floor Anes Supervising Prov Stmt: Pt seen/evaluated, VSS and pt has met criteria for discharge to floor. - MD Abigail
[2017-01-09] MEDS: *HR* HYDROmorphone (PF) 1 MG/ML SYRINGE IVP PRN ×4 (00:21→20:13)
[2017-01-09] MEDS: Clindamycin 900 MG/50 ML 900 MG/50 ML IV.SOLN IVPB SCH ×3 (00:21→16:00)
[2017-01-09] MEDS: 0.9 % Sodium Chloride 1,000 ML IVC SCH (06:25)
[2017-01-09] MEDS ORDERED: Magnesium Sulfate 2 GM in D5% in Water 100 ML IVPB ONE (07:23)
[2017-01-09] MEDS: Insulin LISPRO 300 UNITS/3 ML VIAL SQ SCH (08:58)
[2017-01-09] MEDS: Pantoprazole 40 MG VIAL IVP SCH (09:27)
[2017-01-09 09:51] LABS: Basophils % 0.4 %; Eosinophils # 0.3 K/mcL (0.0-0.6); Hematocrit 35.7 % (35.3-44.9); Hemoglobin 11.9 g/dL (11.5-15.4); Immature Granulocytes % 0.2 % (0-4); Lymphocytes # 2.3 K/mcL (0.6-4.6); Lymphocytes % 28.2 %; Mean Corpuscular HGB Conc 33.3 g/dL (31.6-35.5); Mean Corpuscular Volume 86.9 fL (83.0-100.0); Mean Platelet Volume 9.6 fL (9.4-12.4); Monocytes # 0.5 K/mcL (0.0-1.3); Monocytes % 6.4 %; Platelet Count 396 K/mcL (140-400); Red Blood Count 4.11 M/mcL (3.82-4.97); Red Cell Distribution Width 12.2 % (11.5-14.5); Segmented Neutrophils % 60.8 %
[2017-01-09 10:23] LABS: BUN/Creatinine Ratio 10 (6-26); Blood Urea Nitrogen 6 mg/dL (7-20); Calcium 9.2 mg/dL (8.6-10.8); Carbon Dioxide 29 mEq/L (19-29); Chloride 103 mEq/L (98-109); Glucose 101 mg/dL (70-99); Magnesium 1.6 mg/dL (1.6-2.6); Osmolality,Calculated 282 (280-300); Potassium 3.8 mEq/L (3.5-4.5); Sodium 137 mEq/L (136-145); eGFR For African Americans > 60 (> 60); eGFR For Non-African Americans > 60 (> 60)
--- NOTE | 2017-01-09 11:03 | Internal Med Progress Note ---
Date of Encounter: 01/09/17 Time of Encounter: 10:00 - Assessment and plan (1) Sepsis affecting skin Current Visit: Yes Status: Acute Assessment and plan: Patient to meet criteria for sepsis. We will continue antibiotics, IV fluid. Negative lactate. Negative blood culture. - ENT doctor on case, had I/D. - Closely monitor patient for possible airway obstruction (less likely now as swelling improved). Place patient on continuous cardiac and pulse oximeter monitoring. Resume diet. Patient is at high risk because she is on vancomycin, need close monitoring (2) DVT prophylaxis Current Visit: Yes Status: Acute Assessment and plan: SCDs (3) Positive urine drug screen Current Visit: Yes Status: Acute Assessment and plan: Social work consult for possible detox referral. - Time Spent With Patient Greater than 35 minutes - Subjective Interval history: Patient is a 31-year-old female admitted for left cheek cellulitis. Past medical history is significant for history of IV drug use. Patient was seen and examined. Still has left cheek swelling and redness. Much improved from yesterday. No fever. Vitals generally stable. Had I/D yesterday by ENT. continue vancomycin and clindamycin. Blood cx negative, wound cx shows MRSA. - Constitutional Vitals: Temp Pulse Resp BP Pulse Ox 98.9 F 85 18 97/74 98 01/09/17 08:12 01/09/17 09:16 01/09/17 08:12 01/09/17 08:12 01/09/17 09:16 General appearance: Present: mild distress, A&O X 3, answers questions appropriately (Requires several attempts) - Head Head exam: Present: atraumatic, normocephalic - Eye Eye exam: Present: PERRL, conjuntiva pink, sclera anicteric Pupils: Present: PERRL - Neck Neck exam general surgery: Present: supple, trachea midline. Absent: lymphadenopathy - Respiratory Respiratory exam: Present: CTAB. Absent: accessory muscle use, rales, rhonchi, wheezes - Cardiovascular Cardiovascular exam: Present: RRR, +S1, +S2. Absent: diastolic murmur, gallop, rubs, systolic murmur - GI/Abdominal GI/Abdominal exam: Present: normal bowel sounds, soft, no peritoneal signs. Absent: distended, tenderness - Extremities Exam Extremities exam: Present: warm, radial pulses palpable and symmetrical. Absent : calf tenderness, cyanotic, pedal edema - Neurological Exam Neurological exam: Present: CN II-XII intact, oriented X3, no focal deficits. Absent: pronater drift, facial droop, speech deficit - Skin Skin exam: Present: dry, intact Internal Medicine: Result - Labs CBC & Chem 7: 01/09/17 09:25 01/09/17 09:25 Labs: Short CBC 01/09/17 Range/Units 09:25 WBC 8.2 (4.3-11.1) K/mcL Hgb 11.9 (11.5-15.4) g/dL Hct 35.7 (35.3-44.9) % Plt Count 396 (140-400) K/mcL Neutrophils # 5.0 (1.6-8.9) K/mcL BMP 01/09/17 09:25 Sodium 137 Potassium 3.8 Chloride 103 Carbon Dioxide 29 BUN 6 L Creatinine 0.58 Glucose 101 H Calcium 9.2 Cardiac Enzymes 01/09/17 Range/Units 09:25 Troponin I 0.00 (0-0.03) ng/mL - ABG Interpretation ABG results: PT/INR, D-dimer PT 12.6 Seconds (9.4-12.1) H 01/08/17 06:50 - Impressions Impressions Echocardiogram 01/08/17 13:06 Impressions: LVEF 60-65%. Normal LV chamber size, wall thickness and function. Normal left ventricular diastolic function. Normal right ventricular structure and function. No obvious significant valvular dysfunction. Unable to estimate RVSP due to lack of adequate TR jet. Consider [place] if clinically indicated. Left Ventricular Wall Motion: Rest Echo Findings All wall segments showed normal motion. Findings: Study Quality * Technically adequate exam. ECG Findings * Normal sinus rhythm. Left Ventricle * LVEF 60-65%. * Normal LV chamber size, wall thickness and function. * Normal left ventricular diastolic function. Right Ventricle * Normal right ventricular structure and function. Left Atrium * Normal left atrial size. Right Atrium * Normal right atrial size. Interatrial Septum * Interatrial septum not well evaluated. Aortic Valve * Aortic valve not well visualized. * No aortic regurgitation. * No aortic stenosis. Mitral Valve * Normal mitral valve structure and function. * No mitral regurgitation. * No mitral stenosis. Tricuspid Valve * Grossly normal tricuspid valve structure and function. * No tricuspid regurgitation. * Unable to estimate RVSP due to lack of TR jet. Pulmonic Valve * Grossly normal pulmonic valve structure and function. * No pulmonic regurgitation. Aorta * Normally sized aortic root. Pericardium * The pericardium appears normal. IVC * Normal IVC dimensions and inspiratory collapse. Pulmonary Artery * Normal visualized portions of the main pulmonary artery. Consult Discharge Plan - Plan Referrals: [facility] [Other] (They are only open on Tuesday's from 5p 7-p)
[2017-01-09] MEDS: Vancomycin 1,000 MG in D5% in Water 250 ML IVPB SCH ×2 (11:07→20:09)
--- NOTE | 2017-01-09 12:10 | ENT - Progress Note ---
Date of Encounter: 01/09/17 Time of Encounter: 12:05 - Assessment and Plan (1) Facial abscess Current Visit: Yes Status: Acute White female with findings consistent with facial abscess patient on appropriate antibiotics including vancomycin and clindamycin recommending heat and incision and drainage in the morning no airway difficulty currently and no expectation that this will develop overnight evaluation. on 01/09 24 hours status post I&D with substantial improvement but persistent firm swelling patient tolerating eating better advised to aggressively move the face will need to have the dressing changed and avoid moving the wick on dressing changes for at least another 24-48 hours depending on the amount of swelling and wicking will sign this patient out to the ENT department for continued observation Subjective Patient reports: no new complaints, still having pain, pain is less (Patient afebrile on MRSA medications IV vancomycin with very appropriate response) Objective Initial Vital Signs Temp Pulse Resp BP Pulse Ox 99.5 F 98 20 110/67 98 01/07/17 05:17 01/07/17 05:17 01/07/17 05:17 01/07/17 05:01/07/17 05:17 - General physical appearance well developed, well nourished, moderate distress - Eyes PERRL - ENT normal pinna, normal nares, normal mucosa, Other (Persistent swelling of the left cheek the eye is totally unremarkable no periorbital edema and swelling is resolving slowly wicking substantial pus for continued heat dressing changed) - Labs 01/09/17 09:25 01/09/17 09:25 Diabetes panel 01/09/17 Range/Units 09:25 Sodium 137 (136-145) mEq/L Potassium 3.8 (3.5-4.5) mEq/L Chloride 103 (98-109) mEq/L Carbon Dioxide 29 (19-29) mEq/L BUN 6 L (7-20) mg/dL Creatinine 0.58 (0.57-1.11) mg/dL Glucose 101 H (70-99) mg/dL Calcium 9.2 (8.6-10.8) mg/dL Calcium panel 01/09/17 Range/Units 09:25 Calcium 9.2 (8.6-10.8) mg/dL Pituitary panel 01/09/17 Range/Units 09:25 Sodium 137 (136-145) mEq/L Potassium 3.8 (3.5-4.5) mEq/L Chloride 103 (98-109) mEq/L Carbon Dioxide 29 (19-29) mEq/L BUN 6 L (7-20) mg/dL Creatinine 0.58 (0.57-1.11) mg/dL Glucose 101 H (70-99) mg/dL Calcium 9.2 (8.6-10.8) mg/dL Adrenal panel 01/09/17 Range/Units 09:25 Sodium 137 (136-145) mEq/L Potassium 3.8 (3.5-4.5) mEq/L Chloride 103 (98-109) mEq/L Carbon Dioxide 29 (19-29) mEq/L BUN 6 L (7-20) mg/dL Creatinine 0.58 (0.57-1.11) mg/dL Glucose 101 H (70-99) mg/dL Calcium 9.2 (8.6-10.8) mg/dL Consult Discharge Plan - Plan Referrals: [facility] [Other] (They are only open on Tuesday's from 5p 7-p)
[2017-01-09] MEDS: Lactobacillus 1 EACH CAP.SPRINK PO SCH (15:59)
[2017-01-09] MEDS: Ibuprofen 400 MG TABLET PO PRN (15:59)
[2017-01-10] MEDS: Clindamycin 900 MG/50 ML 900 MG/50 ML IV.SOLN IVPB SCH ×3 (01:00→18:02)
[2017-01-10] MEDS: *HR* HYDROmorphone (PF) 1 MG/ML SYRINGE IVP PRN ×5 (03:40→21:01)
[2017-01-10] MEDS: 0.9 % Sodium Chloride 1,000 ML IVC SCH ×2 (04:05→09:50)
[2017-01-10 04:07] LABS: Basophils % 0.4 %; Eosinophils # 0.1 K/mcL (0.0-0.6); Eosinophils % 1.5 %; Hematocrit 37.4 % (35.3-44.9); Hemoglobin 12.5 g/dL (11.5-15.4); Immature Granulocytes % 0.3 % (0-4); Lymphocytes # 1.8 K/mcL (0.6-4.6); Lymphocytes % 23.7 %; Mean Corpuscular HGB Conc 33.4 g/dL (31.6-35.5); Mean Corpuscular Hemoglobin 29.1 pg (28.0-33.3); Mean Corpuscular Volume 87.2 fL (83.0-100.0); Mean Platelet Volume 9.4 fL (9.4-12.4); Monocytes # 0.4 K/mcL (0.0-1.3); Monocytes % 4.7 %; Neutrophils # 5.2 K/mcL (1.6-8.9); Platelet Count 432 K/mcL (140-400); Red Blood Count 4.29 M/mcL (3.82-4.97); Red Cell Distribution Width 12.3 % (11.5-14.5); Segmented Neutrophils % 69.4 %
[2017-01-10 04:17] LABS: BUN/Creatinine Ratio 10 (6-26); Blood Urea Nitrogen 6 mg/dL (7-20); Calcium 9.3 mg/dL (8.6-10.8); Carbon Dioxide 27 mEq/L (19-29); Chloride 105 mEq/L (98-109); Glucose 113 mg/dL (70-99); Osmolality,Calculated 286 (280-300); Potassium 3.9 mEq/L (3.5-4.5); Sodium 139 mEq/L (136-145); eGFR For African Americans > 60 (> 60); eGFR For Non-African Americans > 60 (> 60)
[2017-01-10] MEDS ORDERED: Lidocaine Viscous Oral Soln 15 ML SOLUTION MM ONE (04:19)
[2017-01-10] MEDS: *HR* HYDROmorphone (PF) 1 MG/ML SYRINGE IVP ONE ×2 (04:28→05:11)
[2017-01-10] MEDS: Ibuprofen 400 MG TABLET PO PRN (05:11)
--- NOTE | 2017-01-10 09:12 | ENT - Progress Note ---
<Mayo Suárez - Last Filed: 01/10/17 12:33> Date of Encounter: 01/10/17 Time of Encounter: 08:50 - Assessment and Plan (1) Facial abscess Current Visit: Yes Status: Acute Persistent left sided facial abscess that is continuing to drain Recommend packing changes and Mupirocin ointment application TID Agree with continuing IV antibiotics for now with Vanc/Clinda MRSA wound culture showed sensitivity to Doxycycline, which she may start when ready to transition to PO abx Given the results of her UDS, she is at high risk for abuse of PICC line if discharged with one Blood cultures remain negative Subjective Patient reports: no new complaints, still having pain Narrative: Pt seen and examined. She is still having pain in her left face where the abscess was drained but states it is slightly improving. She still reports drainage from the area. No fevers, chills. Objective Initial Vital Signs Temp Pulse Resp BP Pulse Ox 99.5 F 98 20 110/67 98 01/07/17 05:01/07/17 05:17 01/07/17 05:01/07/17 05:01/07/17 05:17 - General physical appearance moderate pain, no moderate distress, no severe distress, no severe pain - Eyes PERRL, normal ocular movement - ENT normal pinna, normal nares, normal mucosa, Other (abscess of left cheek still draining yellow purulent fluid; area of swelling noted around area without periorbital involvement) - Neck no masses, no venous distension - Respiratory normal expansion, normal respiratory effort - Labs 01/10/17 04:00 01/10/17 04:00 Diabetes panel 01/09/17 01/10/17 Range/Units 09:25 04:00 Sodium 137 139 (136-145) mEq/L Potassium 3.8 3.9 (3.5-4.5) mEq/L Chloride 103 105 (98-109) mEq/L Carbon Dioxide 29 27 (19-29) mEq/L BUN 6 L 6 L (7-20) mg/dL Creatinine 0.58 0.61 (0.57-1.11) mg/dL Glucose 101 H 113 H (70-99) mg/dL Calcium 9.2 9.3 (8.6-10.8) mg/dL Calcium panel 01/09/17 01/10/17 Range/Units 09:25 04:00 Calcium 9.2 9.3 (8.6-10.8) mg/dL Pituitary panel 01/09/17 01/10/17 Range/Units 09:25 04:00 Sodium 137 139 (136-145) mEq/L Potassium 3.8 3.9 (3.5-4.5) mEq/L Chloride 103 105 (98-109) mEq/L Carbon Dioxide 29 27 (19-29) mEq/L BUN 6 L 6 L (7-20) mg/dL Creatinine 0.58 0.61 (0.57-1.11) mg/dL Glucose 101 H 113 H (70-99) mg/dL Calcium 9.2 9.3 (8.6-10.8) mg/dL Adrenal panel 01/09/17 01/10/17 Range/Units 09:25 04:00 Sodium 137 139 (136-145) mEq/L Potassium 3.8 3.9 (3.5-4.5) mEq/L Chloride 103 105 (98-109) mEq/L Carbon Dioxide 29 27 (19-29) mEq/L BUN 6 L 6 L (7-20) mg/dL Creatinine 0.58 0.61 (0.57-1.11) mg/dL Glucose 101 H 113 H (70-99) mg/dL Calcium 9.2 9.3 (8.6-10.8) mg/dL Consult Discharge Plan - Plan Referrals: [facility] [Other] (They are only open on Tuesday's from 5p 7-p) <Lupis Saldana - Last Filed: 01/10/17 13:40> Date of Encounter: 01/10/17 - Assessment and Plan (1) Facial abscess Current Visit: Yes Status: Acute Patient was seen and examined by myself with resident at bedside. Agree with plan as outlined above. Would agree with IV antibiotics while inpatient. Will continue to follow for improvement. May consider d/c packing tomorrow if continues to improve. Agree with Doxy on d/c. Objective Initial Vital Signs Temp Pulse Resp BP Pulse Ox 99.5 F 98 20 110/67 98 01/07/17 05:17 01/07/17 05:17 01/07/17 05:17 01/07/17 05:17 01/07/17 05:17 - Labs 01/10/17 04:00 01/10/17 04:00 Diabetes panel 01/10/17 Range/Units 04:00 Sodium 139 (136-145) mEq/L Potassium 3.9 (3.5-4.5) mEq/L Chloride 105 (98-109) mEq/L Carbon Dioxide 27 (19-29) mEq/L BUN 6 L (7-20) mg/dL Creatinine 0.61 (0.57-1.11) mg/dL Glucose 113 H (70-99) mg/dL Calcium 9.3 (8.6-10.8) mg/dL Calcium panel 01/10/17 Range/Units 04:00 Calcium 9.3 (8.6-10.8) mg/dL Pituitary panel 01/10/17 Range/Units 04:00 Sodium 139 (136-145) mEq/L Potassium 3.9 (3.5-4.5) mEq/L Chloride 105 (98-109) mEq/L Carbon Dioxide 27 (19-29) mEq/L BUN 6 L (7-20) mg/dL Creatinine 0.61 (0.57-1.11) mg/dL Glucose 113 H (70-99) mg/dL Calcium 9.3 (8.6-10.8) mg/dL Adrenal panel 01/10/17 Range/Units 04:00 Sodium 139 (136-145) mEq/L Potassium 3.9 (3.5-4.5) mEq/L Chloride 105 (98-109) mEq/L Carbon Dioxide 27 (19-29) mEq/L BUN 6 L (7-20) mg/dL Creatinine 0.61 (0.57-1.11) mg/dL Glucose 113 H (70-99) mg/dL Calcium 9.3 (8.6-10.8) mg/dL
[2017-01-10] MEDS: Vancomycin 1,000 MG in D5% in Water 250 ML IVPB SCH ×2 (09:22→21:01)
[2017-01-10 09:55] LABS: Acinetobacter baumannii by PCR Not Detected (Not Detect); Enterococcus by PCR Not Detected (Not Detect); Staphylococcus aureus by PCR Not Detected (Not Detect); Streptococcus agalactiae(B)PCR Not Detected (Not Detect); Streptococcus by PCR Not Detected (Not Detect); Streptococcus pneumoniae PCR Not Detected (Not Detect); Streptococcus pyogenes (A) PCR Not Detected (Not Detect); mecA Methicillin-Resist Gene ***DETECTED*** (Not Detect); vanA/B Vancomycin-Resist Genes Not Detected (Not Detect)
[2017-01-10 09:56] LABS: Candida albicans by PCR Not Detected (Not Detect); Candida glabrata by PCR Not Detected (Not Detect); Candida krusei by PCR Not Detected (Not Detect); Candida parapsilosis by PCR Not Detected (Not Detect); Candida tropicalis by PCR Not Detected (Not Detect); Escherichia coli by PCR Not Detected (Not Detect); Klebsiella oxytoca by PCR Not Detected (Not Detect); Klebsiella pneumoniae by PCR Not Detected (Not Detect); Pseudomonas aeruginosa by PCR Not Detected (Not Detect); Serratia marcescens by PCR Not Detected (Not Detect)
[2017-01-10] MEDS: Lactobacillus 1 EACH CAP.SPRINK PO SCH (11:56)
--- NOTE | 2017-01-10 14:56 | Internal Med Progress Note ---
Date of Encounter: 01/10/17 Time of Encounter: 10:00 - Assessment and plan (1) Sepsis affecting skin Current Visit: Yes Status: Acute Assessment and plan: Patient to meet criteria for sepsis. We will continue antibiotics, IV fluid. Negative lactate. - ENT doctor on case, had I/D. - Cont vanco and clindamycin, add probiotics to prevent C Diff colitis. Patient is at high risk because she is on vancomycin, need close monitoring (2) DVT prophylaxis Current Visit: Yes Status: Acute Assessment and plan: SCDs (3) Positive urine drug screen Current Visit: Yes Status: Acute Assessment and plan: Social work consult for possible detox referral. (4) Bacteremia Current Visit: Yes Status: Acute Assessment and plan: Repeat blood cx shows positive, although pt is on abx. Noticed she had blood cx right after I/D procedure (next morning), not sure if pt needs long time iv abx. Will consult ID. Will repeat blood culture. TTE done, unremarkable. - Time Spent With Patient Greater than 35 minutes - Subjective Interval history: Patient is a 31-year-old female admitted for left cheek cellulitis. Past medical history is significant for history of IV drug use. Patient was seen and examined. Still has left cheek swelling. Much improved from yesterday. Drained by ENT. No fever. Vitals generally stable. continue vancomycin and clindamycin. Wound cx shows MRSA. Blood cx initially negative, but after I/D repeat Blood culture positive for MRSA. Will repeat blood cx, consult ID for further management. - Constitutional Vitals: Temp Pulse Resp BP Pulse Ox 98.0 F 63 18 95/55 95 01/10/17 11:35 01/10/17 11:35 01/10/17 11:35 01/10/17 11:35 01/10/17 11:35 General appearance: Present: mild distress, A&O X 3, answers questions appropriately (Requires several attempts) - Head Head exam: Present: atraumatic, normocephalic Additional comments: Left cheek s/p I/D, has swelling. - Eye Eye exam: Present: PERRL, conjuntiva pink, sclera anicteric Pupils: Present: PERRL - Neck Neck exam general surgery: Present: supple, trachea midline. Absent: lymphadenopathy - Respiratory Respiratory exam: Present: CTAB. Absent: accessory muscle use, rales, rhonchi, wheezes - Cardiovascular Cardiovascular exam: Present: RRR, +S1, +S2. Absent: diastolic murmur, gallop, rubs, systolic murmur - GI/Abdominal GI/Abdominal exam: Present: normal bowel sounds, soft, no peritoneal signs. Absent: distended, tenderness - Extremities Exam Extremities exam: Present: warm, radial pulses palpable and symmetrical. Absent : calf tenderness, cyanotic, pedal edema - Neurological Exam Neurological exam: Present: CN II-XII intact, oriented X3, no focal deficits. Absent: pronater drift, facial droop, speech deficit - Skin Skin exam: Present: dry, intact Internal Medicine: Result - Labs CBC & Chem 7: 01/10/17 04:00 01/10/17 04:00 Labs: Short CBC 01/10/17 Range/Units 04:00 WBC 7.4 (4.3-11.1) K/mcL Hgb 12.5 (11.5-15.4) g/dL Hct 37.4 (35.3-44.9) % Plt Count 432 H (140-400) K/mcL Neutrophils # 5.2 (1.6-8.9) K/mcL BMP 01/10/17 04:00 Sodium 139 Potassium 3.9 Chloride 105 Carbon Dioxide 27 BUN 6 L Creatinine 0.61 Glucose 113 H Calcium 9.3 - ABG Interpretation ABG results: PT/INR, D-dimer PT 12.6 Seconds (9.4-12.1) H 01/08/17 06:50 - VTE Documentation of Mechanical Device: Intermittent pneumatic compression device Consult Discharge Plan - Plan Referrals: [facility] [Other] (They are only open on Tuesday' from 5p 7-p)
--- NOTE | 2017-01-10 21:53 | Electrocardiograph Report ---
[address] [place] [address] Test Date: 2017-01-09 Pat Name: Maryjane Woodall Department: 110 Room: 2N08 Gender: F Resident Care Aide: : 1985 Requested By: Sis Suárez Order Number: [id number] Reading MD: Shiva Barton MD Measurements Intervals [place] Rate: 88 P: 70 ID: [id number] QRS: 63 QRSD: 101 T: 51 QT: 349 QTc: 395 Interpretive Statements SINUS RHYTHM INCOMPLETE RIGHT BUNDLE BRANCH BLOCK Electronically Signed On 01-10-2017 21:52:16 EDT by Shiva Barton MD
[2017-01-11] MEDS: *HR* HYDROmorphone (PF) 1 MG/ML SYRINGE IVP PRN ×4 (00:26→10:03)
[2017-01-11] MEDS: Clindamycin 900 MG/50 ML 900 MG/50 ML IV.SOLN IVPB SCH ×2 (00:26→08:54)
[2017-01-11 03:46] LABS: Basophils # 0.1 K/mcL (0.0-0.2); Basophils % 0.8 %; Eosinophils # 0.2 K/mcL (0.0-0.6); Eosinophils % 2.6 %; Hematocrit 37.3 % (35.3-44.9); Hemoglobin 12.4 g/dL (11.5-15.4); Immature Granulocytes % 0.3 % (0-4); Lymphocytes # 2.5 K/mcL (0.6-4.6); Lymphocytes % 34.3 %; Mean Corpuscular HGB Conc 33.2 g/dL (31.6-35.5); Mean Corpuscular Hemoglobin 29.3 pg (28.0-33.3); Mean Corpuscular Volume 88.2 fL (83.0-100.0); Mean Platelet Volume 9.4 fL (9.4-12.4); Monocytes # 0.4 K/mcL (0.0-1.3); Monocytes % 5.9 %; Neutrophils # 4.1 K/mcL (1.6-8.9); Platelet Count 469 K/mcL (140-400); Red Blood Count 4.23 M/mcL (3.82-4.97); Red Cell Distribution Width 12.4 % (11.5-14.5); Segmented Neutrophils % 56.1 %
[2017-01-11 03:56] LABS: BUN/Creatinine Ratio 9 (6-26); Blood Urea Nitrogen 6 mg/dL (7-20); Calcium 9.2 mg/dL (8.6-10.8); Carbon Dioxide 30 mEq/L (19-29); Chloride 101 mEq/L (98-109); Glucose 77 mg/dL (70-99); Osmolality,Calculated 282 (280-300); Potassium 3.9 mEq/L (3.5-4.5); Sodium 138 mEq/L (136-145); eGFR For African Americans > 60 (> 60); eGFR For Non-African Americans > 60 (> 60)
[2017-01-11] MEDS: Lactobacillus 1 EACH CAP.SPRINK PO SCH (08:54)
[2017-01-11] MEDS: Vancomycin 1,000 MG in D5% in Water 250 ML IVPB SCH (08:54)
[2017-01-11] MEDS: Ibuprofen 400 MG TABLET PO PRN (09:07)
--- NOTE | 2017-01-11 15:12 | Internal Med Progress Note ---
Date of Encounter: 01/11/17 Time of Encounter: 10:00 - Assessment and plan (1) Sepsis affecting skin Current Visit: Yes Status: Acute Assessment and plan: Patient to meet criteria for sepsis on admission. Now sepsis resolved. - ENT doctor on case, had I/D. - Cont vanco, D/C clindamycin, add probiotics to prevent C Diff colitis. Patient is at high risk because she is on vancomycin, need close monitoring (2) DVT prophylaxis Current Visit: Yes Status: Acute Assessment and plan: SCDs (3) Positive urine drug screen Current Visit: Yes Status: Acute Assessment and plan: Social work consult for possible detox referral. (4) Bacteremia Current Visit: Yes Status: Acute Assessment and plan: Repeat blood cx 1 out of 2 shows positive, although pt is on abx. Noticed she had blood cx right after I/D procedure (next morning), not sure if pt needs long time iv abx. Will consult ID. Will repeat blood culture. TTE done, unremarkable. - Time Spent With Patient Greater than 35 minutes - Subjective Interval history: Patient is a 31-year-old female admitted for left cheek cellulitis. Past medical history is significant for history of IV drug use. Patient was seen and examined. Left cheek swelling has improved. almost resolved. No fever. Vitals generally stable. continue vancomycin, D/C clindamycin. Waiting for final blood cx result. ID consult for further management. - Constitutional Vitals: Temp Pulse Resp BP Pulse Ox 98.3 F 68 15 82/45 98 01/11/17 11:04 01/11/17 11:04 01/11/17 11:04 01/11/17 11:04 01/11/17 11:04 General appearance: Present: mild distress, A&O X 3, answers questions appropriately (Requires several attempts) - Head Head exam: Present: atraumatic, normocephalic Additional comments: Left cheek s/p I/D, well dressed. - Eye Eye exam: Present: PERRL, conjuntiva pink, sclera anicteric Pupils: Present: PERRL - Neck Neck exam general surgery: Present: supple, trachea midline. Absent: lymphadenopathy - Respiratory Respiratory exam: Present: CTAB. Absent: accessory muscle use, rales, rhonchi, wheezes - Cardiovascular Cardiovascular exam: Present: RRR, +S1, +S2. Absent: diastolic murmur, gallop, rubs, systolic murmur - GI/Abdominal GI/Abdominal exam: Present: normal bowel sounds, soft, no peritoneal signs. Absent: distended, tenderness - Extremities Exam Extremities exam: Present: warm, radial pulses palpable and symmetrical. Absent : calf tenderness, cyanotic, pedal edema - Neurological Exam Neurological exam: Present: CN II-XII intact, oriented X3, no focal deficits. Absent: pronater drift, facial droop, speech deficit - Skin Skin exam: Present: dry, intact Internal Medicine: Result - Labs CBC & Chem 7: 01/11/17 03:30 01/11/17 03:30 Labs: Short CBC 01/11/17 Range/Units 03:30 WBC 7.3 (4.3-11.1) K/mcL Hgb 12.4 (11.5-15.4) g/dL Hct 37.3 (35.3-44.9) % Plt Count 469 H (140-400) K/mcL Neutrophils # 4.1 (1.6-8.9) K/mcL BMP 01/11/17 03:30 Sodium 138 Potassium 3.9 Chloride 101 Carbon Dioxide 30 H BUN 6 L Creatinine 0.64 Glucose 77 Calcium 9.2 - ABG Interpretation ABG results: PT/INR, D-dimer PT 12.6 Seconds (9.4-12.1) H 01/08/17 06:50 - VTE Documentation of Mechanical Device: Intermittent pneumatic compression device Consult Discharge Plan - Plan Referrals: [facility] [Other] (They are only open on Tuesday' from 5p 7-p)
--- NOTE | 2017-01-11 15:22 | Infectious Disease Consult ---
Date of Encounter: 01/11/17 Time of Encounter: 15: Assessment and Plan (1) Sepsis affecting skin Status: Acute Assessment and plan: The patient had two SIRS criteria on admission. Likely secondary to left facial abscess. Improved. WBC has normalized. Tachycardia has resolved. Blood cultures drawn 01/07/17 are NGTD x 2 sets. Repeat blood cultures drawn 01/09 are positive 1/2 sets for CONS. (2) Bacteremia Status: Acute Assessment and plan: Causative organism mecA gene Staph species per PCR --> likely a CONS. Blood cultures drawn 01/07/17 are NGTD x 2 sets. Repeat blood cultures drawn 01/09/17 are positive 1/2 sets for CONS. This is likely a contaminant and is clinically insignificant. (3) Abscess of skin or subcutaneous tissue Status: Acute Assessment and plan: Causative organism MRSA. Patient reports secondary to spider bite, but the patient reports that she recently inject IV drugs into her neck. CT scan of the face showed marked soft tissue swelling of the face, but no definitive abscess. No necrotizing fasciitis was noted as well. Status post bedside I & D by Dr. Shah 01/08/17. The patient reports improvement in swelling since I & D, but continues to report severe pain. Reports pain with chewing and some pain with swallowing, but denies pain in the eye socket or with eye movement or visual changes. Continue Vancomycin IV. Pharmacy to dose. Goal trough ~15. Discontinue Clindamycin. Continue wound care and warm compresses per the ENT team's recommendations. Duration of treatment depends on the clinical picture. Monitor renal function and for drug toxicity and dose-adjust antibiotics. Qualifiers: Site of cutaneous abscess: face Qualified Code(s): L02.01 - Cutaneous abscess of face (4) Intravenous drug abuse Status: Acute Assessment and plan: Reports last IVDU 1 week ago with more recent use of snorting cocaine. Hepatitis C positive. Check HIV status. Hepatitis A nonreactive. Hepatitis Bcore IgM Ab in the grayzone --> repeat in 1 month. (5) Positive urine drug screen Status: Acute Assessment and plan: UDS positive for Opiates, amphetamines, and cocaine. Infectious Disease HPI - Data of Consult Patient: new to practice Consult date: 01/11/17 Requesting Physician: Sis Suárez MD Primary Care Provider: PCP NONE - Consult Narrative Reason for consult: Left face abscess, bacteremia History of present illness: Ms. Woodall is a 31 year old female with past medical history of kidney stones, anxiety, depression, and IV drug abuse. The patient was admitted to the hospital January 07 for left facial abscess and hyponatremia. We are consulted January 11 for further evaluation and treatment recommendations regarding bacteremia and left face abscess. Patient is a 31-year-old female with past medical history as stated above. His admitted to the hospital with a 2 day history of a spider bite to her left face with markedly increase in pain and swelling. Upon arrival, the patient was afebrile, but she was tachycardic. She'll leukocytosis with neutrophilic predominance. CT scan of the face revealed marketed soft tissue swelling of the face, but no abscess. The patient was started on IV clindamycin IV vancomycin. Wound culture was obtained that was positive for MRSA. Blood cultures were obtained 2 sets prior to initiation of IV antibiotics. Urine was sent for drug screen was positive for opiates, amphetamines, and cocaine. The patient was admitted to the hospital for further evaluation and treatment. ENT was consulted and completed a bedside incision and drainage of the left face abscess. The patient's white blood cell count has normalized. A transthoracic echocardiogram that was negative for valvular vegetations and showed an EF of 60 -65%. Repeat blood cultures obtained January 09 were +1 out of 2 sets for what appears to be coag-negative staph. Currently, patient is on IV vancomycin and IV clindamycin. We've been asked to evaluate and make further recommendations. During My exam today, the patient states that overall she feels poorly. She reports intermittent subjective fevers and chills and diaphoresis. The pain in her left face is still pretty significant, but the swelling and redness is better. Has a headache, but does report some anterior and left sided neck pain. She denies any chest pain, shortness of breath, or cough. She denies any congestion, earache, or sore throat. She does report some difficulty swallowing due to pain and states it hurts to chew on the left side of her mouth. She denies any nausea, vomiting, diarrhea, or constipation. She does report a poor appetite. She denies any abdominal pain or urinary complaints. She denies pain in her back or extremities. She denies any oral thrush or any other skin lesions. The patient does endorse a history of IV drug use recently with last use being one week ago. She also states that she snorts cocaine on a regular basis. Reported history of hepatitis C from a tattoo. She states she has spent 2 years in alf in the past. CC: Sis Suárez MD Past Med Surg Social Fam HX - Past Medical History Attestation: Yes The following information was validated with the patient. Source: patient, old records reviewed, nursing notes reviewed Medical history: hepatitis (Hepatitis C), kidney stones Psychiatric history: anxiety, depression, prior suicide attempt - Past Surgical History Surgical History: cholecystectomy - Social History Smoking Status: Current every day smoker Packs per day: 1 PPD Smokeless Tobacco Status: No Alcohol use: none Drug use: cocaine (Reports using cocaine yesterday prior to coming to ED), opiates, marijuana, IV Drug Use (Pt admits to snorting Heroin approximaely 2 days ago and Smoking crack the day before that. Reports last IVDU 1 week prior to admission.), other Occupational status: unemployed Current living situation: Homeless (Bounces from house to house) Activity Level: Independent ambulation Recent Out of Country Travel Within the Last 8 Weeks: No Exposure or Possible Exposure to Illness During Travel: No - Family History Father Race: Family Member Ethnicity: Non- Living Status: Still Living Hx Family Medical Disorders: No Mother Race: Family Member Ethnicity: Non- Living Status: Age at : 44 Cause of : IN Hx Family Cardiac Disorders: Yes (IN, HD) Hx Family Endocrine Disorder: Yes (DM) Brother Race: Family Member Ethnicity: Non- Living Status: Still Living Hx Family Cardiac Disorders: Yes (HD) Infectious Disease-CN:Meds No Known Home Drugs 01/07/17 [History] 3 Allergy/AdvReac Type Severity Reaction Status Date / Time Amoxicillin Allergy Anaphylaxis Verified 01/07/17 05:21 iodine Allergy Itching Verified 01/07/17 05:21 ketorolac [From Toradol] Allergy Seizure Verified 01/07/17 05:21 Penicillins Allergy Anaphylaxis Verified 01/07/17 05:21 tramadol Allergy Seizure Verified 01/07/17 05:21 sea food Allergy See Uncoded 07/20/16 07:52 Comments All systems: reviewed and no additional remarkable complaints except as stated Exam - Constitutional Vitals: Temp Pulse Resp BP Pulse Ox 98.3 F 68 15 82/45 98 01/11/17 11:04 01/11/17 11:04 01/11/17 11:04 01/11/17 11:04 01/11/17 11:04 General appearance: cooperative, no acute distress, thin - Head Head exam: Present: atraumatic, normal inspection, normocephalic - Eye Eye exam: Present: EOMI, normal appearance, PERRL Pupils: Present: normal accommodation - ENT ENT exam: Present: mucous membranes moist Additional comments: Extensive facial swelling and erythema noted to the left cheeck, mandibular area , and left neck. Purulent drainage noted on the old dressing. Packing noted. - Neck Neck exam: Present: tenderness (left lateral and anterior neck). Absent: normal inspection - Respiratory Respiratory exam: Present: CTAB. Absent: rales, respiratory distress, rhonchi, wheezes - Cardiovascular Cardiovascular exam: Present: RRR, +S1, +S2 - GI/Abdominal GI/Abdominal exam: Present: normal bowel sounds, soft. Absent: distended, tenderness - Extremities Exam Extremities exam: Absent: joint swelling, pedal edema, tenderness Additional comments: Multiple track mcgowan noted to the BUE, BLE, and left neck. - Back Exam Back exam: Present: normal inspection. Absent: paraspinal tenderness, vertebral tenderness - Neurological Exam Neurological exam: Present: alert, oriented X3, no focal deficits - Psychiatric Psychiatric exam: Present: normal affect, normal mood - Skin Skin exam: Present: dry, intact, warm Infectious Disease CN: Results - Labs CBC & Chem 7: 01/11/17 03:30 01/11/17 03:30 Cultures: Cultures 01/08/17 13:29 Anaerobic Culture - Preliminary Face No growth. 01/09/17 11:05 Blood Culture - Preliminary Peripheral Venipuncture No growth. 01/09/17 09:25 Blood Culture - Preliminary Peripheral Venipuncture Gram Positive Cocci 01/08/17 13:29 Wound Culture - Final Face Methicillin Resistant S.aureus 01/07/17 16:15 Wound Culture - Final Face Methicillin Resistant S.aureus Serology: Serology 01/09/17 01/07/17 Range/Units 09:25 13:50 A. baumannii (PCR) Not Detected (Not Detect) Yvrose albicans (PCR) Not Detected (Not Detect) C. glabrata (PCR) Not Detected (Not Detect) C. krusei (PCR) Not Detected (Not Detect) C. parapsilosis (PCR) Not Detected (Not Detect) C. tropicalis (PCR) Not Detected (Not Detect) Enterobacteriac sp PCR Not Detected (Not Detect) E. cloacae complex PCR Not Detected (Not Detect) Enterococcus sp PCR Not Detected (Not Detect) E. coli (PCR) Not Detected (Not Detect) H. influenzae (PCR) Not Detected (Not Detect) Hepatitis A IgM Ab Nonreactive (Nonreactive) Hep Bs Antigen Nonreactive (Nonreactive) Hep B Core IgM Ab [place] H (Nonreactive) Hepatitis C Ab Screen Reactive H (Nonreactive) Klebsiella oxytoca PCR Not Detected (Not Detect) Klebsiella pneumoniae Not Detected (Not Detect) List. monocytogenes PCR Not Detected (Not Detect) N. meningitidis (PCR) Not Detected (Not Detect) Proteus species (PCR) Not Detected (Not Detect) Serratia marcescens PCR Not Detected (Not Detect) Staphylococcus sp PCR DETECTED A (Not Detect) Staph aureus (PCR) Not Detected (Not Detect) mecA-Methicil Res Gene DETECTED A (Not Detect) Streptococcus sp PCR Not Detected (Not Detect) Group A Strep DNA Not Detected (Not Detect) Group B Strep (PCR) Not Detected (Not Detect) Strep pneumoniae (PCR) Not Detected (Not Detect) P. aeruginosa (PCR) Not Detected (Not Detect) Dilan/B-Vanco Res Genes Not Detected (Not Detect) KPC (blaKPC) Detect PCR N/A (Not Detect) - VTE Documentation of Mechanical Device: Intermittent pneumatic compression device Consult Discharge Plan - Plan Referrals: [facility] [Other] (They are only open on Tuesday' from 5p 7-p)
--- NOTE | 2017-01-11 15:57 | ENT - Progress Note ---
Date of Encounter: 01/11/17 Time of Encounter: 15:30 - Assessment and Plan (1) Facial abscess Current Visit: Yes Status: Acute Persistent left sided facial abscess that is continuing to drain Will re-evaluate if she needs packing changes tomorrow; she will benefit from continuing this upon discharge Change Bacitracin to Mupirocin ointment application BID Repeat blood cultures 1/2 for MRSA and remains on IV Vanc; will defer to ID for abx regimen Given the results of her UDS, she is at high risk for abuse of PICC line if discharged with one Subjective Patient reports: still having pain Narrative: Pt seen and examined. She is still having pain in her left cheek and is still draining yellow purulent fluid. She states packing with iodoform is very painful. Denies any fever, chills. Objective Initial Vital Signs Temp Pulse Resp BP Pulse Ox 99.5 F 98 20 110/67 98 01/07/17 05:17 01/07/17 05:17 01/07/17 05:17 01/07/17 05:01/07/17 05:17 - General physical appearance severe pain - Eyes PERRL, normal ocular movement, no icteric, no loss of movement - ENT normal pinna, normal nares, normal mucosa, no hearing loss, no congestion, no decreased hearing, no deviated nasal septum, no nasal discharge - Neck no masses, no bruits - Integumentary other (area of swelling in left cheek with open wound; stable appearance) - Labs 01/11/17 03:30 01/11/17 03:30 Diabetes panel 01/11/17 Range/Units 03:30 Sodium 138 (136-145) mEq/L Potassium 3.9 (3.5-4.5) mEq/L Chloride 101 (98-109) mEq/L Carbon Dioxide 30 H (19-29) mEq/L BUN 6 L (7-20) mg/dL Creatinine 0.64 (0.57-1.11) mg/dL Glucose 77 (70-99) mg/dL Calcium 9.2 (8.6-10.8) mg/dL Calcium panel 01/11/17 Range/Units 03:30 Calcium 9.2 (8.6-10.8) mg/dL Pituitary panel 01/11/17 Range/Units 03:30 Sodium 138 (136-145) mEq/L Potassium 3.9 (3.5-4.5) mEq/L Chloride 101 (98-109) mEq/L Carbon Dioxide 30 H (19-29) mEq/L BUN 6 L (7-20) mg/dL Creatinine 0.64 (0.57-1.11) mg/dL Glucose 77 (70-99) mg/dL Calcium 9.2 (8.6-10.8) mg/dL Adrenal panel 01/11/17 Range/Units 03:30 Sodium 138 (136-145) mEq/L Potassium 3.9 (3.5-4.5) mEq/L Chloride 101 (98-109) mEq/L Carbon Dioxide 30 H (19-29) mEq/L BUN 6 L (7-20) mg/dL Creatinine 0.64 (0.57-1.11) mg/dL Glucose 77 (70-99) mg/dL Calcium 9.2 (8.6-10.8) mg/dL - VTE Documentation of Mechanical Device: Intermittent pneumatic compression device Consult Discharge Plan - Plan Referrals: swapna Godoy [Other] (They are only open on Tuesday's from 5p 7-p)
[2017-01-11] MEDS: *HR* OxyCODONE/APAP 5/325 TABLET PO PRN ×2 (16:11→20:25)
[2017-01-11 20:28] VITALS: BP 93/64
[2017-01-11] MEDS ORDERED: Melatonin 3 MG TABLET PO PRN (21:06)
[2017-01-11] MEDS ORDERED: Aminoglycoside Consult 1 EACH MC ONE (21:47)
--- NOTE | 2017-01-11 22:19 | Event Note ---
Date of Encounter: 01/11/17 Time of Encounter: 21:45 I was asked to come to the room by the patient's RN, due to concerns that she desired to leave. At arrival to the room, the patient was in her bed covered but expressed desire to leave the hospital. The reason that she wanted to leave was unclear, despite being asked several times in different ways for help with clarification. She felt that her drug abuse was causing her to have withdrawals that were not being adequately controlled (my impression), when it was discussed that her primary team had been addressing her substance abuse issues with a step down manner of opioid prescriptions, she stated that she did not want any narcotics. She was counselled by myself and the RN regarding the concerns of her leaving with an unresolved infection, including: sepsis, , airway compromise, respiratory failure, worsening infection, and disfigurement. She was of sound mind at the time of her decision and still wanted to leave AMA. 100 mg doxycycline BID x14 days was sent to her pharmacy on record in the system and the RN was asked to call and let the patient know.
--- NOTE | 2017-02-02 09:05 | Discharge Summary ---
Date of Encounter: 01/11/17 Time of Encounter: 10:00 - Discharge Diagnosis (1) Sepsis affecting skin Priority: Primary Status: Acute (2) DVT prophylaxis Priority: Secondary Status: Acute (3) Positive urine drug screen Priority: Secondary Status: Acute (4) Bacteremia Priority: Primary Status: Acute - Discharge Medications Prescriptions: Doxycycline 100 mg PO BID #28 capsule Home Medications: Doxycycline 100 mg PO BID #28 capsule 01/11/17 [Rx] Allergies/Adverse Reactions: 3 Allergy/AdvReac Type Severity Reaction Status Date / Time Amoxicillin Allergy Anaphylaxis Verified 01/07/17 05:21 iodine Allergy Itching Verified 01/07/17 05:21 ketorolac [From Toradol] Allergy Seizure Verified 01/07/17 05:21 Penicillins Allergy Anaphylaxis Verified 01/07/17 05:21 tramadol Allergy Seizure Verified 01/07/17 05:21 sea food Allergy See Uncoded 07/20/16 07:52 Comments Date of admission: 01/07/17 12:38 Primary care physician: PCP NONE Consults: 01/07/17 12:48 Consult to Wound Care [CONS] Routine Reason for Consult: Patient has large abscess to left cheek with drainage. Call Completed: No 01/07/17 13:00 Consult to ENT [CONS] Routine Consulting Provider: ENT Yoder Reason for Consult: Patient has large edema/cellulitis of the left cheek roughly the size of a grapefruit. Patient states it is from a spider bite. Patient is a known drug addict with IV use and tox screen + for opiates, cocaine, and amphetamines on admission. Imaging shows no drainable abscess at this time. IV vanc and clindamycin ordered for infection coverage. Call Completed: No 01/07/17 13:05 Consult to Invasive Line Access Team [CONS] Routine Reason for Consult: limited vascular access. Line Type: EPIV PICC line indications: Limited vascular access 01/10/17 13:14 Consult to Infectious Diseases [CONS] Routine Consulting Provider: Infectious Disease Yoder Reason for Consult: Blood Cx positive for MRSA, Hx of IVDU Call Completed: Yes Discharging clinician: Sis Suárez Anticipated date of discharge: 01/11/17 - Patient Status Disposition: Left Against Medical Advice Condition: Fair - Discharge Instructions Follow Up With: [facility] Godoy [Other] (They are only open on from 5p 7-p) Hospital course: Ms. Woodall is a 31 year old female with Hx of IVDU admitted for facial abscess. She was treated with iv vanco and clindamycin. ENT consult was called and had I/D for pt. After treatment, her condition has improved. Clindamycin was discontinued, pt is on vanco iv. Pt has one blood culture positive, ID consult saw pt consider contamination. However, pt signed AMA during 01/11 night. database administration associate tried to advise her to stay but unsuccessful. Pt was prescribed po doxycycline by alteration manager physician. - Time Spent with Patient Total time spent providing and/or coordinating discharge services: - Constitutional Vitals: Temp Pulse Resp BP Pulse Ox 98.3 F 94 20 93/64 96 01/11/17 20:21 01/11/17 20:21 01/11/17 20:21 01/11/17 20:21 01/11/17 20:21 General appearance: Present: mild distress, A&O X 3, answers questions appropriately (Requires several attempts) - VTE Documentation of Mechanical Device: Intermittent pneumatic compression device
== END 2017-01-11 21:48 | disposition left against medical advice (07) | DRG 710 ==
LOC: EMEROO 05:16 → 3ANU 05:16 → SUATTDRO 12:38 → 2NNU 15:18 → 3ANU 01-11 18:00
PROVIDERS: ADMIT Internal Medicine; ATTEND Internal Medicine